=== PATIENT | male | born 1985 | race Caucasian/White ===

== ENCOUNTER 2016-11-14 10:51 | Emergency (ER) | payer MEDICAID ==
[~2016-11-14] VITALS: Ht 160 cm; Wt 90.0 kg
[2016-11-14 10:54] VITALS: Ht 160 cm; Wt 90.0 kg
[2016-11-14] MEDS ORDERED: ONDANSETRON 4 MG INJ IV STA (12:34)
[2016-11-14] MEDS ORDERED: SOD CHLORIDE 0.9% 1,000 ML IV STA (12:34)
[2016-11-14] MEDS ORDERED: KETOROLAC 30 MG INJ IV STA (12:34)
[2016-11-14 12:51] LABS: ADD SCAN DIFF NO
[2016-11-14 12:53] LABS: BASOPHIL # 0.1 10^3/ul (0.0-0.1); BASOPHILS % 0.4 % (0.0-2.0); EOSINOPHILS # 0.2 10^3/ul (0.0-0.5); EOSINOPHILS % 1.3 % (0.0-7.0); HEMATOCRIT 44.9 % (42.0-52.0); HEMOGLOBIN 16.4 g/dl (14.0-18.0); LYMPHOCYTES # 1.3 10^3/ul (0.8-2.9); LYMPHOCYTES % 9.3 % (15.0-51.0); MEAN CORPUSCULAR HEMOGLOBIN 30.3 pg (29.0-33.0); MEAN CORPUSCULAR HGB CONC 36.5 g/dl (32.0-37.0); MEAN CORPUSCULAR VOLUME 82.8 fl (82.0-101.0); MEAN PLATELET VOLUME 9.7 fl (7.4-10.4); MONOCYTE # 0.9 10^3/ul (0.3-0.9); MONOCYTES % 6.7 % (0.0-11.0); NEUTROPHIL # 11.2 10^3/ul (1.6-7.5); NEUTROPHILS % 82.1 % (39.0-77.0); PLATELET COUNT 258 10^3/UL (140-415); RED BLOOD COUNT 5.42 10^6/ul (4.70-6.10); RED CELL DISTRIBUTION WIDTH 12.4 % (11.5-14.5); WHITE BLOOD COUNT 13.6 10^3/ul (4.8-10.8)
[2016-11-14 13:05] LABS: ADD UMIC YES; UR BILIRUBIN (Dip) NEGATIVE (NEGATIVE); UR BLOOD (Dip) 2+ (NEGATIVE); UR CLARITY CLEAR (CLEAR); UR COLOR LT. YELLOW (YELLOW); UR GLUCOSE (Dip) NEGATIVE (NEGATIVE); UR KETONES (Dip) NEGATIVE (NEGATIVE); UR LEUKOCYTE ESTERASE (Dip) TRACE (NEGATIVE); UR NITRITE (Dip) NEGATIVE (NEGATIVE); UR TOTAL PROTEIN (Dip) NEGATIVE (NEGATIVE); UR UROBILINOGEN (Dip) 0.2 E.U./dL (0.1-1.0)
[2016-11-14 13:11] LABS: ALBUMIN 5.2 g/dl (3.3-4.9); ALBUMIN/GLOBULIN RATIO 1.48; BILIRUBIN,INDIRECT 0.5 mg/dl (0-1.1); BILIRUBIN,TOTAL 0.5 mg/dl (0.2-1.3); CALCIUM 10.4 mg/dl (8.4-10.2); CREATININE 0.89 mg/dl (0.61-1.24); POTASSIUM 4.2 mmol/L (3.5-5.1); TOTAL PROTEIN 8.7 g/dl (6.1-8.1)
[2016-11-14] MEDS: morphine 4 MG/ML VIAL IV STA ×2 (13:23→13:30)
--- NOTE | 2016-11-14 13:38 | RADRPT ---
PROCEDURE: US Scrotum. CLINICAL INDICATION: Pain TECHNIQUE: Multiple sonographic images of the scrotal region were obtained utilizing a linear arra y transducer with grayscale and color-flow and a Doppler imaging. The images were reviewed on a high -resolution PACS workstation. COMPARISON: No prior studies are available for comparison. FINDINGS: The right testicle is well visualized and has a normal echotexture. No focal areas of abnormal echog enicity are visualized. The right testicle measures measures 4.5 x 2.3 x 2.9 cm. There is normal col or-flow. The right epididymis is visualized and unremarkable in appearance. There is normal color-fl ow. The left testicle is well visualized and has a normal echotexture. No focal areas abnormal echogenic ity are visualized. The left testicle measures measures 4.9 x 2.2 x 3.6 cm. There is normal color-fl ow. The left epididymis is visualized and is unremarkable in appearance. There is normal color-flow. The scrotal wall is unremarkable. No swelling or edema is seen. No other incidental abnormality is identified. RPTAT: AA IMPRESSION: 1. Unremarkable testicular ultrasound. .Kel Carrillo MD, Date Time Electronically viewed and signed by .Kel Carrillo MD, MD on 11/14/2016 13:38 .S/
--- NOTE | 2016-11-14 13:43 | ERD ---
ER Documentation Chief Complaint Date/Time DATE: 11/14/16 TIME: 13:43 Chief Complaint AP, LEFT TESTICULAR PAIN TODAY HPI This is a 31-year-old male presenting to the emergency department complaining of severe left-sided abdominal pain that started this morning at 7 in the morning. Patient states that the pain radiates to his left flank and down to his testicle. He states is constant 10 out of 10. He admits to having nausea but denies vomiting, fever, diarrhea, constipation. Patient denies hematuria, painful urination, penile discharge. He denies taking any medications for this. He states he has no relevant medical problems ROS All systems reviewed and are negative except as per history of present illness. Medications Home Meds Active Scripts Naproxen* (Naproxen*) 500 Mg Tablet, 500 MG PO BID, #30 TAB Prov:REGINA JEAN PA-C 11/14/16 Hydrocodone/Acetaminophen (Jackson 5-325 Tablet) 1 Each Tablet, 1 TAB PO Q6H Y for PAIN, #30 TAB Prov:REGINA JEAN PA-C 11/14/16 PMhx/Soc Medical and Surgical Hx: pt denies Medical Hx, pt denies Surgical Hx Hx Alcohol Use: No Hx Substance Use: No Hx Tobacco Use: No Smoking Status: Never smoker Physical Exam Vitals Vital Signs Date Time Temp Pulse Resp B/P Pulse Ox O2 Delivery O2 Flow Rate FiO2 11/14/16 10:54 98.1 81 18 150/90 0 Physical Exam Const: [] Head: Atraumatic Eyes: Normal Conjunctiva ENT: Normal External Ears, Nose and Mouth. Neck: Full range of motion..~ No meningismus. Resp: Clear to auscultation bilaterally Cardio: Regular rate and rhythm, no murmurs Abd: Soft, non tender, non distended. Normal bowel sounds Skin: No petechiae or rashes Back: No midline or flank tenderness Ext: No cyanosis, or edema Neur: Awake and alert Psych: Normal Mood and Affect Result Diagram: 11/14/16 1245 11/14/16 1245 Results 24 hrs Laboratory Tests Test 11/14/16 12:45 White Blood Count 13.610^3/ul Red Blood Count 5.4210^6/ul Hemoglobin 16.4g/dl Hematocrit 44.9% Mean Corpuscular Volume 82.8fl Mean Corpuscular Hemoglobin 30.3pg Mean Corpuscular Hemoglobin Concent 36.5g/dl Red Cell Distribution Width 12.4% Platelet Count 09693^3/UL Mean Platelet Volume 9.7fl Neutrophils % 82.1% Lymphocytes % 9.3% Monocytes % 6.7% Eosinophils % 1.3% Basophils % 0.4% Nucleated Red Blood Cells % 0.0/100WBC Neutrophils # 11.210^3/ul Lymphocytes # 1.310^3/ul Monocytes # 0.910^3/ul Eosinophils # 0.210^3/ul Basophils # 0.110^3/ul Nucleated Red Blood Cells # 0.010^3/ul Urine Color LT. YELLOW Urine Clarity CLEAR Urine pH 6.0 Urine Specific [place] 1.010 Urine Ketones NEGATIVE Urine Nitrite NEGATIVE Urine Bilirubin NEGATIVE Urine Urobilinogen 0.2 E.U./dL Urine Leukocyte Esterase TRACE Urine Microscopic RBC 2-5/HPF Urine Microscopic WBC 0-2/HPF Urine Hemoglobin 2+ Urine Glucose NEGATIVE% Urine Total Protein NEGATIVE Sodium Level 144mmol/L Potassium Level 4.2mmol/L Chloride Level 104mmol/L Carbon Dioxide Level 28mmol/L Anion Gap 16 Blood Urea Nitrogen 15mg/dl Creatinine 0.89mg/dl Glucose Level 116mg/dl Calcium Level 10.4mg/dl Total Bilirubin 0.5mg/dl Direct Bilirubin 0.00mg/dl Indirect Bilirubin 0.5mg/dl Aspartate Amino Transf (AST/SGOT) 33IU/L Alanine Aminotransferase (ALT/SGPT) 45IU/L Alkaline Phosphatase 69IU/L Total Protein 8.7g/dl Albumin 5.2g/dl Globulin 3.50g/dl Albumin/Globulin Ratio 1.48 Lipase 88U/L Current Medications Medications (Trade) Dose Ordered Sig/Fani Route PRN Reason Start Time Stop Time Status Last Admin Dose Admin Sodium Chloride (NS) 1,000 ml @ 1,000 mls/hr Q1H STAT IV 11/14/16 12:34 11/14/16 13:33 DC 11/14/16 13:23 Morphine Sulfate (morphine) 8 mg ONCE STAT IV 11/14/16 12:34 11/14/16 12:37 DC Ondansetron HCl (Zofran Inj) 4 mg ONCE STAT IV 11/14/16 12:34 11/14/16 12:37 DC 11/14/16 13:23 Ketorolac Tromethamine (Toradol) 30 mg ONCE STAT IV 11/14/16 12:34 11/14/16 12:37 DC 11/14/16 13:23 Procedures/MDM This is a 31-year-old male presenting to the emergency department with left sided abdominal abd and flank pain due to nephrolithiasis. There was no evidence of septic nephrolithiasis. Patient did have a obstructive 2.8 cm stone within the left renal pelvis that is appropriate to be followed up as an outpatient with a urologist in the next couple days for outpatient lithotripsy. Patient presented afebrile, he has mild leukocytosis. There was no evidence of renal failure. Urinalysis did not show any evidence of a urinary tract infection. In the ED patient was given 1 L fluid, Zofran and morphine. I have reassessed her and he significantly feels a lot better. I discussed with him to follow-up with a urologist in the next couple days or to [facility] if he is not able to be followed up. Patient is stable for discharge for home with precautions to return to the emergency department. Prescription for Jackson naproxen was provided. He understands and agrees with the plan Testicular US: 1. Unremarkable testicular ultrasound. CT abd and pelvis without contrast: 1. Findings suggestive of a recently passed left ureteral calculus, as above. 2. In addition, there is an obstructive 28 x 15 mm calculus within the left renal pelvis, causing moderate hydronephrosis. 3. Multiple smaller nonobstructive calculi are identified on the left as well. 4. Hepatic steatosis is noted. 5. No mass or lymphadenopathy is identified. was consulted and he agrees with plan above Departure Diagnosis: Primary Impression: Nephrolithiasis Condition: Stable REGINA JEAN PA-C Nov 14, 2016 13:43
--- NOTE | 2016-11-14 14:01 | RADRPT ---
PROCEDURE: CT Abdomen and Pelvis without contrast. CLINICAL INDICATION: Left flank pain TECHNIQUE: CT of the abdomen and pelvis was performed on a multi-detector scanner without IV contr ast. Coronal and sagittal images were reformatted from the axial data set. One or more of the foll owing dose reduction techniques were used: automated exposure control, adjustment of the mA and/or kV according to patient size, use of iterative reconstruction technique. CTDI = 17.23 mGy. DLP = 10 72.24 mGy-cm. COMPARISON: Ultrasound, 11/14/2016 FINDINGS: CT abdomen: The lung bases are clear. The heart size is normal, without pericardial effusion. The liver is fat ty infiltrated, without evidence of focal mass. Gallbladder, biliary tree, pancreas, spleen, adrena l glands and right kidney are unremarkable. There is mild left ureteral dilatation, without evidenc e of ureteral calculus. 3 mm stone is present within the urinary bladder. Findings likely represen t a recently passed left ureteral calculus. In addition, there is an obstructive 28 x 15 mm calculu s within the left renal pelvis (3-71, 1100 HU), causing moderate hydronephrosis. Numerous smaller no nobstructive left renal calculi are also seen. The aorta is of normal caliber. There is no retroperitoneal lymphadenopathy. The poncho hepatis reg ion is clear. CT pelvis: No bowel obstruction, free intraperitoneal air or abscess is identified. There is no diverticulosis , diverticulitis, colitis or appendicitis. No pelvic mass, free fluid or lymphadenopathy is identif ied. The surrounding osseous structures are remarkable for mild degenerative spondylosis of the spine. N o osteolytic or osteoblastic lesion is detected. IMPRESSION: 1. Findings suggestive of a recently passed left ureteral calculus, as above. 2. In addition, there is an obstructive 28 x 15 mm calculus within the left renal pelvis, causing m oderate hydronephrosis. 3. Multiple smaller nonobstructive calculi are identified on the left as well. 4. Hepatic steatosis is noted. 5. No mass or lymphadenopathy is identified. RPTAT: .Eugenio Saucedo MD, Date Time Electronically viewed and signed by .Eugenio Saucedo MD, on 11/14/2016 14:00 .R/
[2016-11-14] MEDS ORDERED: HYDR-906 PO (14:25)
[2016-11-14] MEDS ORDERED: NAPR-688 PO (14:25)
[2016-11-14 14:40] VITALS: BP 136/72; PULSE 81; RESP 18
== END 2016-11-14 15:02 | disposition home or self-care (01) ==
LOC: FTE 10:51
DX: N20.0 Calculus of kidney (principal); R11.0 Nausea
CPT/HCPCS: 74176; 76870; 80053; 81001; 83690; 85025; J1885; J2270; J2405; J7030; 36415; 96374; 96375